=== PATIENT | female | born 1985 | race Caucasian/White ===

== ENCOUNTER → 2019-11-24 | Outpatient (REF) | payer BC ==
[2019-11-24 13:46] LABS: BASO % 0.5 % (0.0-1.0); EOS # 0.1 10^3/uL (0.0-0.5); EOS % 1.6 % (0.0-3.0); HEMATOCRIT 38.7 % (36.0-47.0); HEMOGLOBIN 13.1 g/dl (12.0-15.5); LYMPH # 2.1 10^3/uL (1.5-5.0); LYMPH % 34.4 % (24.0-44.0); MEAN CORPUSCULAR HGB CONC 33.9 g/dl (32.0-36.5); MEAN CORPUSCULAR VOLUME 88.6 fl (80.0-96.0); MONO # 0.6 10^3/uL (0.0-0.8); MONO % 9.2 % (0.0-5.0); NEUTROPHILS # 3.4 10^3/uL (1.5-8.5); PLATELET COUNT, AUTOMATED 269 10^3/uL (150-450); RED BLOOD COUNT 4.37 10^6/uL (4.00-5.40); WHITE BLOOD COUNT 6.2 10^3/uL (4.0-10.0)
[2019-11-24 14:26] LABS: ALBUMIN 3.4 GM/DL (3.2-5.2); ALT/SGPT 17 U/L (12-78); BILIRUBIN,TOTAL 0.6 MG/DL (0.2-1.0); BLOOD UREA NITROGEN 11 MG/DL (7-18); CALCIUM LEVEL 8.9 MG/DL (8.5-10.1); CARBON DIOXIDE LEVEL 27 MEQ/L (21-32); CHLORIDE LEVEL 105 MEQ/L (98-107); CHOLESTEROL LEVEL 160 MG/DL (<200); CHOLESTEROL RISK RATIO 2.388 (<5); CREATININE FOR GFR 0.89 MG/DL (0.55-1.30); GLOMERULAR FILTRATION RATE > 60.0 (>60); GLUCOSE, FASTING 91 MG/DL (70-100); HDL CHOLESTEROL 67 MG/DL (>40); LDL CHOLESTEROL 79 MG/DL (<100); NON-HDL-C 93 MG/DL; POTASSIUM SERUM 4.4 MEQ/L (3.5-5.1); SODIUM LEVEL 138 MEQ/L (136-145); TOTAL PROTEIN 6.8 GM/DL (6.4-8.2); TRIGLYCERIDES LEVEL 70 MG/DL (<150)
== END ==
LOC: M SFHCADAM 09:14
PROVIDERS: ATTEND Family Medicine
DX: Z00.00 Encounter for general adult medical examination without abnormal findings (principal); R19.7 Diarrhea, unspecified

== ENCOUNTER → 2019-12-22 | Outpatient (CLI) | payer BC ==
[~2019-12-22] MED LIST: PREVTAB2; birth control
[2019-12-22 10:26] LABS: BASO % 0.5 % (0.0-1.0); EOS # 0.1 10^3/uL (0.0-0.5); EOS % 0.9 % (0.0-3.0); HEMATOCRIT 39.8 % (36.0-47.0); HEMOGLOBIN 13.6 g/dl (12.0-15.5); LYMPH # 1.6 10^3/uL (1.5-5.0); LYMPH % 27.8 % (24.0-44.0); MEAN CORPUSCULAR HEMOGLOBIN 30.1 pg (27.0-33.0); MEAN CORPUSCULAR HGB CONC 34.2 g/dl (32.0-36.5); MEAN CORPUSCULAR VOLUME 88.1 fl (80.0-96.0); MONO # 0.4 10^3/uL (0.0-0.8); MONO % 7.7 % (0.0-5.0); NEUTROPHILS # 3.5 10^3/uL (1.5-8.5); NEUTROPHILS % 62.7 % (36.0-66.0); PLATELET COUNT, AUTOMATED 286 10^3/uL (150-450); RED BLOOD COUNT 4.52 10^6/uL (4.00-5.40); WHITE BLOOD COUNT 5.6 10^3/uL (4.0-10.0)
[2019-12-22 12:06] LABS: H PYLORI QUALITATIVE IgG NEGATIVE (NEGATIVE)
[2019-12-24 07:07] LABS: IGASUB2 262.2 mg/dL (73.2-301.2); IGASUB3 36.9 mg/dL (13.4-97.9); IgA SERUM (part of Subclasses) 318 mg/dL (87-352); TISSUE TRANSGLUTAMINASE IgA <2 U/mL (0-3)
== END ==
LOC: M LAB 09:27
PROVIDERS: ATTEND Nurse Practitioner Acute Care
DX: R19.7 Diarrhea, unspecified (principal)

== ENCOUNTER 2020-01-01 08:10 | Day surgery (SDC) | payer BC ==
[~2020-01-01 08:10] MED LIST changes: +LIDOCAINE 2% 100MG/5ML SDV (FOR ANES.) As Ordered ONE; +MIDAZOLAM INJ 2MG/2ML VIAL (J2250 PER 1MG) As Ordered ONE; +ROCURONIUM BROMIDE 50 MG/5 ML VIAL As Ordered ONE; +fentaNYL 100 MCG/2 ML INJECTION (J3010) As Ordered ONE; +propofoL 200 MG/20 ML VIAL As Ordered ONE
[2020-01-01] MEDS ORDERED: SCOPOLAMINE 1MG TRANSDERMAL PATCH As Ordered ONE (08:50)
[2020-01-01] MEDS ORDERED: SCOPOLAMINE 1MG TRANSDERMAL PATCH ONE (08:50)
[2020-01-01] MEDS ORDERED: ONDANSETRON 4MG/2ML VIAL As Ordered ONE (09:09)
[2020-01-01] MEDS ORDERED: dexameTHASONE 4 MG/ML 1ML VIAL (J1100 PER 1MG) As Ordered ONE (09:09)
[2020-01-01] MEDS ORDERED: METOCLOPRAMIDE INJ 10MG/2ML VIAL (J2765 PER 1) As Ordered ONE (09:09)
[2020-01-01] MEDS ORDERED: SUGAMMADEX SODIUM 500 MG/5 ML VIAL (BRIDION) As Ordered ONE ×2 (09:10→09:24)
[2020-01-01] MEDS ORDERED: ACETAMINOPHEN 1000MG 100ML IV BTL (OFIRMEV) (J0131 PER 10MG) As Ordered ONE (09:11)
[2020-01-01] MEDS ORDERED: KETOROLAC 60MG 2ML VIAL As Ordered ONE (10:05)
--- NOTE | 2020-03-12 11:38 | RO ---
Date of Operation: 01/01/2020 PREOPERATIVE DIAGNOSIS AND INDICATIONS FOR SURGERY: Pain, bleeding, and desire for bilateral tubal ligation. POSTOPERATIVE DIAGNOSIS: Pain, bleeding, and desire for bilateral tubal ligation. PROCEDURES: 1. Laparoscopic bilateral tubal ligation by fulguration. 2. Dilation and curettage (D&C) hysteroscopy NovaSure ablation. SURGEON: Desiree Veliz MD KEYBOARD OPERATOR: None for this case. SPECIMENS: Curettings. ANESTHESIA: General endotracheal anesthesia. BRIEF DESCRIPTION OF PROCEDURE AND FINDINGS: Lupe was brought to the operating where sufficient general endotracheal anesthesia was induced. She was prepped, draped, and position in the usual sterile fashion. The uterine manipulator was placed after the uterus had been sounded to 9.5 with a cervical cavity length of 4, giving a corpus cavity length of 5.5. We subsequently measured with a 4.4, but at this point we just had length. We also could tell the uterus was reasonably accessible from below, so patient would be a candidate for a TBH in the future should she at any point desire and be a candidate for that. After placement of the uterine manipulator and the measurements as already noted, attention was turned to the abdomen. A transverse semi lower uterine incision was made below the umbilicus. Sharp and blunt dissection were continued through the subcutaneous tissues to the level of the rectus fascia, which was elevated with kedar clamps and transversely incised, and the peritoneum entered under direct visualization. Dane cannula was placed and secured in place with 0-Vicryl tension sutures and CO2 insufflation was then begun. After adequate CO2 insufflation, the peritoneal cavity was visualized. There were normal shiny peritoneal surfaces throughout. There was no excretion of ascites nor exudate. There were normal uterus, ovaries, and tubes, and photographs were taken to document these findings. The bipolar cautery was then placed through the operative port on the umbilical scope and used to cauterize both tubes in forceps locations along each tube with good cauterization noted. The instruments were then removed, the CO2 allowed to escape the abdomen, and the fascial wound closed with 0-Vicryl retention sutures, and 3-0 Vicryl used in a subcuticular stitch at the skin. Dry sterile dressing was then applied and attention was turned to the pelvis. Working from below, the uterine manipulator was removed and the hysteroscope was placed. Normal endometrial cavity was noted. Curettage to smooth out some of the redundancy of the endometrial was undertaken with those samples sent and then the NovaSure was placed and after successfully passing cavity assessment, an uncomplicated NovaSure ablation was carried. Again, the length at 5.5 and width at 4.4. After the NovaSure ablation, the device was removed and the procedure ended. ESTIMATED BLOOD LOSS: 3 mL. FLUID PLACEMENT: Crystalloid. COMPLICATIONS: None. SPECIMENS: As already noted, specimens were curettings. CONDITION AND DISPOSITION: Lupe tolerated the procedure well and went to the recovery room in good condition. RENETTA
== END 2020-01-01 12:15 | disposition home or self-care (01) ==
LOC: M SDC 08:10
PROVIDERS: ATTEND Obstetrics & Gynecology
DX: R10.2 Pelvic and perineal pain (principal); N92.0 Excessive and frequent menstruation with regular cycle; Z30.2 Encounter for sterilization; K58.8 Other irritable bowel syndrome
CPT/HCPCS: 58563; 58670; 88305; J0131; J1100; J1885; J2250; J2405; J2765; J3010